=== PATIENT | female | born 1950 | race Caucasian/White ===

== ENCOUNTER 2016-10-16 15:58 | Emergency (ER) | payer MEDICARE, BC ==
[~2016-10-16] VITALS: Ht 165.1 cm; Wt 87.1 kg
[~2016-10-16 15:58] MED LIST: BENADRYL25 MG PO; EXCEDRIN EXTRA1 EAC1 PO; LEVOTHYROXINE125 MCG; LEVOTHYROXINE137 MCG PO; NASAL DECONGEST30 M2 PO; NORCO 5-325 TA1 EACH PO; PREDNISONE1 MG PO; PREDNISONE5 MG PO; TRIAMCINOLONE A15 G1 TOP; VALIUM5 MG PO; VITAMIN D35000 UNIT PO
== END 2016-10-16 18:00 | disposition home or self-care (01) ==
LOC: ED 15:58
DX: M70.62 Trochanteric bursitis, left hip (principal); E23.0 Hypopituitarism; E03.9 Hypothyroidism, unspecified; Z88.5 Allergy status to narcotic agent; Z79.899 Other long term (current) drug therapy; Z79.52 Long term (current) use of systemic steroids
CPT/HCPCS: 73502; 96372; 99283; J1885

== ENCOUNTER 2017-03-15 09:09 | Emergency (ER) | payer MEDICARE, BC ==
[~2017-03-15] VITALS: Ht 165.1 cm; Wt 83.9 kg
--- OUTSIDE RECORDS SUMMARY | ~2017-03-15 | XMS | Clinical Summary ---
Demographics + + + | Address | [address] | | | [place] [address] | + + + | Home Phone | | + + + | Preferred Language | Unknown | + + + | Marital Status | Unknown | + + + | Synagogue Affiliation | Unknown | + + + | Race | Unknown | + + + | Ethnic Group | Unknown | + + + Author + + + | Author | NON REVENUE LOCATIONS | + + + | Organization | NON REVENUE LOCATIONS | + + + | Address | Unknown | + + + | Phone | Unavailable | + + + Care Team Providers + +------+ + | Care Store Worker Name | Role | Phone | + +------+ + PP | Unavailable | + +------+ + Source Comments [facility] is fully live on both [facility] and [facility] Allergies Not on File Current Medications Not on file Active Problems Not on file Social History + +-------+ +--------+------+ | Tobacco Use | Types | Packs/Day | Years | Date | | | | | Used | | + +-------+ +--------+------+ | Never Assessed | | | | | + +-------+ +--------+------+ + + + | Sex Assigned at | Date Recorded | | | | + + + | Not on file | | + + + Plan of Treatment + + + + + | Health Maintenance | Due Date | Last Done | Comments | + + + + + | INFLUENZA VACCINE | | | | | (FLU SHOT) | 7 | | | + + + + + Results Not on filefrom Last 3 Months"
--- OUTSIDE RECORDS SUMMARY | ~2017-03-15 | XMS | Clinical Summary ---
Demographics + + + | Address | [address] | | | [place] [address] | + + + | Home Phone | | + + + | Preferred Language | Unknown | + + + | Marital Status | Unknown | + + + | Hinduism Affiliation | Unknown | + + + [...] Team Providers + +------+ + | Care Manager French Name | Role | Phone | + +------+ + PP | Unavailable | + +------+ + Source Comments [facility] is fully live on both [facility] and [facility] Allergies Not on File Current Medications Not [...]
[2017-03-15] MEDS ORDERED: METHYLPREDNISOLO4 M1 PO (11:14)
[2017-03-15] MEDS ORDERED: NORCO 5-325 TA1 EACH PO (11:14)
== END 2017-03-15 11:20 | disposition home or self-care (01) ==
LOC: ED 09:09
DX: M54.2 Cervicalgia (principal); M54.5 Low back pain; E03.9 Hypothyroidism, unspecified; Z90.89 Acquired absence of other organs; Z88.5 Allergy status to narcotic agent; Z79.899 Other long term (current) drug therapy; W18.30XA Fall on same level, unspecified, initial encounter
CPT/HCPCS: 72100; 72125; 72220; 99284; J7512